=== PATIENT | female | born 1985 | race Caucasian/White ===

== ENCOUNTER 2017-01-26 22:25 | Inpatient (IN) | payer BC, OTHER ==
[2017-01-26] MEDS ORDERED: Adenosine* 3 MG/ML VIAL ONE (22:34)
[2017-01-26] MEDS ORDERED: LORazepam INJ* 2 MG/ML 1 ML VIAL ONE (22:45)
[2017-01-26] MEDS ORDERED: NS 0.9% 1000 ML* 1,000 ML IV ONE (22:53)
[2017-01-26] MEDS ORDERED: Adenosine SYRINGE* 6 MG/2 ML IV PUSH ONE (22:53)
[2017-01-26] MEDS ORDERED: Adenosine* 3 MG/ML VIAL IV PUSH ONE ×2 (22:55→22:59)
[2017-01-26] MEDS ORDERED: LORazepam INJ* 2 MG/ML 1 ML VIAL IV PUSH ONE (22:59)
[2017-01-26 23:08] LABS: Hematocrit 41 % (35-47); Hemoglobin 13.7 g/dl (12.0-16.0); Mean Corpuscular HGB Conc 33 g/dl (31-36); Mean Corpuscular Hemoglobin 29 pg (27-31); Mean Corpuscular Volume 87 fL (80-97); Mean Platelet Volume 9 um3 (7.4-10.4); Red Blood Count 4.73 10^6/ul (4.0-5.4); Red Cell Distribution Width 14 % (10.5-15); White Blood Count 16.9 10^3/ul (3.5-10.8)
[2017-01-26 23:14] LABS: Comments Flag Yes
[2017-01-26 23:15] LABS: Add Diff/Slide Review? Slide Review Added
[2017-01-26 23:20] LABS: ALT 18 U/L (7-52); AST 17 U/L (13-39); Albumin 4.3 g/dL (3.2-5.2); Alkaline Phosphatase 45 U/L (34-104); Anion Gap 11 mmol/L (2-11); BUN/Creatinine Ratio 21.7 (8-20); Blood Urea Nitrogen 18 mg/dL (6-24); CO2 Carbon Dioxide 21 mmol/L (22-32); Calcium 9.8 mg/dL (8.6-10.3); Chloride 100 mmol/L (101-111); EGFR African American 103.1 (>60); EGFR Non-African American 80.2 (>60); Globulin 3.1 g/dL (2-4); Glucose 135 mg/dL (70-100); Magnesium 1.7 mg/dL (1.9-2.7); Sodium 132 mmol/L (133-145); Total Protein 7.4 g/dL (6.4-8.9)
[2017-01-26 23:37] LABS: Troponin I 0.04 ng/mL (<0.04)
[2017-01-26] MEDS ORDERED: Potassium Chlor TAB* 20 MEQ TAB.ER PO ONE (23:38)
[2017-01-27 00:03] LABS: TSH (Thyroid Stimulating Horm) 9.18 mcIU/mL (0.34-5.60)
[2017-01-27 01:48] LABS: Benzodiazepine Urine Screen Presumptive Positive (None Detect)
[2017-01-27] MEDS ORDERED: Aspirin Low Dose CHEW TAB* 81 MG PO ONE (02:36)
[2017-01-27] MEDS ORDERED: Nitroglycerin 2% OINT* 1 GM PAK ONE (05:41)
[2017-01-27] MEDS ORDERED: Heparin DRIP 25,000 UNITS(*) 25,000 UNITS/500 ML BAG IVPB SCH (05:45)
[2017-01-27] MEDS: Nitroglycerin 2% OINT* 1 GM PAK TOPICAL SCH ×3 (05:49→18:32)
[2017-01-27] MEDS: Heparin VIAL(*) 5000 UNITS/ML VIAL (FIVE THOUSAND) IV SCH ×2 (06:00→15:11)
[2017-01-27] MEDS ORDERED: LORazepam INJ* 2 MG/ML 1 ML VIAL IV PRN (07:39)
[2017-01-27] MEDS ORDERED: ALPRAZolam TAB* 0.25 MG PO PRN (07:39)
--- NOTE | 2017-01-27 07:44 | HP ---
H&P (Free Text) History and Physical: PCP: Addi Schafer MD Date/Time of Evaluation: 01/27/2017 0600 CC: palpitations HPI: Mrs Devine is a 31YO obese female HX anxiety who reports onset of palpitations while watching a movie around 2200. She reports having similar episodes in the past, but they stopped very quickly whereas this one continued. She felt some mild non-radiating chest pressure, mild nausea, & mild SOB. Upon presentation to ED, she was found to be in SVT max rate 246 converted back to sinus after adenosine 6 & 12mg doses. ECG post-conversion is NSR rate 105 w/ subtle ST depression in I & II. Initial troponin was 0.04. She initially denied drug use. However, when confronted with her UDS positive for cocaine admitted to use "a couple days ago". Follow up troponin was 0.38. PMedHx Anxiety Allergies CI Pigment Blue 63 [From Cymbalta] Allergy (Verified 01/26/17 22:51) tension, anxiety, muscle spasms Duloxetine [From Cymbalta] Allergy (Verified 01/26/17 22:51) tension, anxiety, muscle spasms Ambulatory Orders Alprazolam [Xanax] 0.25 mg PO BID PRN 01/26/17 PSurgHx denies SocHx: states this is only the 2nd time she's used cocaine, admits to ~12beers/ week, denies tobacco; works at [employer]; , no children; full code status FamHx: Mother: breast CA. Father: NIDDM & HTN. ROS: as above, otherwise reviewed and all were negative Constitutional: NAD, normally developed, obese white female vitals: Vital Signs Temp 36.9 C 01/27/17 05:15 Pulse 95 01/27/17 06:15 Resp 19 01/27/17 06:15 BP 132/83 01/27/17 06:15 Pulse Ox 97 01/27/17 06:15 Intake & Output 01/26/17 01/26/17 01/27/17 11:59 23:59 11:59 Intake Total 1000 0 Balance 1000 0 Weight 83.915 kg 86.636 kg Intake: IV Fluids 1000 Oral 0 Other: # Voids 1 HEENM: atraumatic; sclera/conjunctiva: non-icteric/clear; hearing: intact; oropharynx: clear, mucosa moist Neck: soft tissue: non-tender; thyroid: normal Pulmonary: clear to auscultation bilaterally, good aeration, no accessory muscle use CV: RR/RR, normal S1S2, no carotid bruit, no jugular venous distention, 2+ B DP/ PT, no edema Abdominal: soft, non-distended, non-tender, no rebound/guarding/rigidity, normoactive bowel sounds, no hepatosplenomegaly or masses, no costovertebral angle tenderness Musculoskeletal: general: grossly intact; gait: stable Integumental: normal appearance and texture of exposed skin Psychiatric orientation: AA&O to PPS affect: calm mood: cooperative eye contact: good content: mostly reliable responses: timely insight: good Testing: Lab Results 01/26/17 01/26/17 01/26/17 Range/Units 22:45 22:45 22:45 WBC 16.9 H (3.5-10.8) 10^3/ul RBC 4.73 (4.0-5.4) 10^6/ul Hgb 13.7 (12.0-16.0) g/dl Hct 41 (35-47) % MCV 87 (80-97) fL MCH 29 (27-31) pg MCHC 33 (31-36) g/dl RDW 14 (10.5-15) % Plt Count 321 (150-450) 10^3/ul MPV 9 (7.4-10.4) um3 Neut % (Auto) 54.2 (38-83) % Lymph % (Auto) 37.7 (25-47) % Jenkins % (Auto) 5.8 (1-9) % Eos % (Auto) 1.2 (0-6) % Baso % (Auto) 1.1 (0-2) % Absolute Neuts (auto) 9.2 H (1.5-7.7) 10^3/ul Absolute Lymphs (auto) 6.4 H (1.0-4.8) 10^3/ul Absolute Monos (auto) 1.0 H (0-0.8) 10^3/ul Absolute Eos (auto) 0.2 (0-0.6) 10^3/ul Absolute Basos (auto) 0.2 (0-0.2) 10^3/ul Absolute Nucleated RBC 0.01 10^3/ul Nucleated RBC % 0 INR (Anticoag Therapy) 0.85 L (0.89-1.11) APTT 26.6 (26.0-36.3) seconds D-Dimer, Quantitative < 200 (Less Than 230) ng/mL Sodium 132 L (133-145) mmol/L Potassium 3.0 L (3.5-5.0) mmol/L Chloride 100 L (101-111) mmol/L Carbon Dioxide 21 L (22-32) mmol/L Anion Gap 11 (2-11) mmol/L BUN 18 (6-24) mg/dL Creatinine 0.83 (0.51-0.95) mg/dL Est GFR ( Amer) 103.1 (>60) Est GFR (Non-Af Amer) 80.2 (>60) BUN/Creatinine Ratio 21.7 H (8-20) Glucose 135 H (70-100) mg/dL Calcium 9.8 (8.6-10.3) mg/dL Magnesium 1.7 L (1.9-2.7) mg/dL Total Bilirubin 0.30 (0.2-1.0) mg/dL AST 17 (13-39) U/L ALT 18 (7-52) U/L Alkaline Phosphatase 45 (34-104) U/L Troponin I 0.04 H* (<0.04) ng/mL B-Natriuretic Peptide ( - 100) pg/mL Total Protein 7.4 (6.4-8.9) g/dL Albumin 4.3 (3.2-5.2) g/dL Globulin 3.1 (2-4) g/dL Albumin/Globulin Ratio 1.4 (1-3) TSH 9.18 H (0.34-5.60) mcIU/mL Beta HCG, Quant < 0.60 mIU/mL Urine Opiates Screen (None Detect) Ur Barbiturates Screen (None Detect) Ur Phencyclidine Scrn (None Detect) Ur Amphetamines Screen (None Detect) U Benzodiazepines Scrn (None Detect) Urine Cocaine Screen (None Detect) U Cannabinoids Screen (None Detect) 01/26/17 01/27/17 01/27/17 Range/Units 22:45 01:10 02:00 WBC (3.5-10.8) 10^3/ul RBC (4.0-5.4) 10^6/ul Hgb (12.0-16.0) g/dl Hct (35-47) % MCV (80-97) fL MCH (27-31) pg MCHC (31-36) g/dl RDW (10.5-15) % Plt Count (150-450) 10^3/ul MPV (7.4-10.4) um3 Neut % (Auto) (38-83) % Lymph % (Auto) (25-47) % Jenkins % (Auto) (1-9) % Eos % (Auto) (0-6) % Baso % (Auto) (0-2) % Absolute Neuts (auto) (1.5-7.7) 10^3/ul Absolute Lymphs (auto) (1.0-4.8) 10^3/ul Absolute Monos (auto) (0-0.8) 10^3/ul Absolute Eos (auto) (0-0.6) 10^3/ul Absolute Basos (auto) (0-0.2) 10^3/ul Absolute Nucleated RBC 10^3/ul Nucleated RBC % INR (Anticoag Therapy) (0.89-1.11) APTT (26.0-36.3) seconds D-Dimer, Quantitative (Less Than 230) ng/mL Sodium (133-145) mmol/L Potassium (3.5-5.0) mmol/L Chloride (101-111) mmol/L Carbon Dioxide (22-32) mmol/L Anion Gap (2-11) mmol/L BUN (6-24) mg/dL Creatinine (0.51-0.95) mg/dL Est GFR ( Amer) (>60) Est GFR (Non-Af Amer) (>60) BUN/Creatinine Ratio (8-20) Glucose (70-100) mg/dL Calcium (8.6-10.3) mg/dL Magnesium (1.9-2.7) mg/dL Total Bilirubin (0.2-1.0) mg/dL AST (13-39) U/L ALT (7-52) U/L Alkaline Phosphatase (34-104) U/L Troponin I 0.38 H* (<0.04) ng/mL B-Natriuretic Peptide 56 ( - 100) pg/mL Total Protein (6.4-8.9) g/dL Albumin (3.2-5.2) g/dL Globulin (2-4) g/dL Albumin/Globulin Ratio (1-3) TSH (0.34-5.60) mcIU/mL Beta HCG, Quant mIU/mL Urine Opiates Screen None detected (None Detect) Ur Barbiturates Screen None detected (None Detect) Ur Phencyclidine Scrn None detected (None Detect) Ur Amphetamines Screen None detected (None Detect) U Benzodiazepines Scrn Presumptive positive H (None Detect) Urine Cocaine Screen Presumptive positive H (None Detect) U Cannabinoids Screen None detected (None Detect) ECG, personally reviewed (post-conversion): NSR rate 105 w/ subtle ST depression in I & II CXR, personally reviewed: no acute process Impression: 31F presenting with a cocaine induced NSTEMI DIAGNOSIS & PLAN Primary cocaine induced NSTEMI : aspirin : nitropaste : heparin GTT : IV lorazepam PRN for tachycardia (non-SVT) or HTN : no beta dave 2nd cocaine : supplemental oxygen : check ECHO : trend troponins : Hardeep Christianson MD cardiology consulted, will follow Secondary anxiety : continue PRN alprazolam Admission Rational: inpatient for NSTEMI DVTp: heparin GTT Code Status: full HCP:
--- NOTE | 2017-01-27 07:52 | RAD ---
INDICATION: Palpitations. COMPARISON: Comparison is made with a prior study from June 20, 2011. TECHNIQUE: A portable view of the chest was obtained. FINDINGS: Cardiac and mediastinal contours appear to be within normal limits. The lungs are clear. No pleural effusion is seen. IMPRESSION: NO EVIDENCE FOR ACUTE DISEASE.
[2017-01-27 08:42] LABS: Hematocrit 38 % (35-47); Hemoglobin 12.3 g/dl (12.0-16.0); Mean Corpuscular HGB Conc 33 g/dl (31-36); Mean Corpuscular Hemoglobin 29 pg (27-31); Mean Corpuscular Volume 87 fL (80-97); Mean Platelet Volume 9 um3 (7.4-10.4); Red Blood Count 4.32 10^6/ul (4.0-5.4); Red Cell Distribution Width 14 % (10.5-15); White Blood Count 10.8 10^3/ul (3.5-10.8)
[2017-01-27 08:56] LABS: BUN/Creatinine Ratio 14.9 (8-20); EGFR Non-African American 102.7 (>60); Potassium 3.9 mmol/L (3.5-5.0)
--- NOTE | 2017-01-27 08:56 | PN ---
Subjective Date of Service: 01/27/17 Interval History: Seen with at bedside No palpitation, no chest pain, no pain, no SOB, N/V Has no complaints Objective Active Medications: Alprazolam (Xanax Tab*) 0.25 mg PO BID PRN PRN Reason: ANXIETY Heparin Sodium (Porcine) (Heparin Vial(*)) 0 units IV .PER PROTOCOL [facility] Last Admin: 01/27/17 06:00 Dose: 4,650 units Heparin Sodium/Dextrose (Heparin Drip 25,000 Units(*)) 25,000 units in 500 mls @ 0 mls/hr IVPB .(INITIAL RATE) MARCELA; Per Protocol PRN Reason: Protocol Last Admin: 01/27/17 06:04 Dose: 20 mls/hr Lorazepam (Ativan Inj*) 1 mg IV Q10M PRN PRN Reason: systolc>150 or HR>100(not SVT) Nitroglycerin (Nitroglycerin 2% Oint*) 1 inch TOPICAL Q6H [facility] Last Admin: 01/27/17 05:49 Dose: 1 inch Pharmacy Profile Note (Nitro Patch/Oint Remove*) 1 note PATCH OFF Q6H [facility] Vital Signs 01/27/17 01/27/17 01/27/17 04:00 04:30 04:51 Temperature 98.5 F Pulse Rate 109 103 97 Respiratory 12 18 16 Rate Blood Pressure 96/80 124/91 124/91 (mmHg) O2 Sat by Pulse 98 98 Oximetry 01/27/17 01/27/17 01/27/17 05:00 05:15 05:23 Temperature 98.4 F Pulse Rate 102 93 Respiratory 16 16 15 Rate Blood Pressure 147/82 138/80 134/81 (mmHg) O2 Sat by Pulse 98 97 Oximetry 01/27/17 01/27/17 01/27/17 05:30 05:36 05:45 Temperature Pulse Rate 96 90 Respiratory 17 15 18 Rate Blood Pressure 132/84 135/80 (mmHg) O2 Sat by Pulse 97 97 Oximetry 01/27/17 01/27/17 01/27/17 06:00 06:15 06:30 Temperature Pulse Rate 86 95 90 Respiratory 16 19 15 Rate Blood Pressure 127/84 132/83 119/80 (mmHg) O2 Sat by Pulse 97 97 97 Oximetry 01/27/17 01/27/17 01/27/17 06:45 07:00 07:15 Temperature Pulse Rate 92 94 81 Respiratory 15 18 27 Rate Blood Pressure 127/82 127/80 131/68 (mmHg) O2 Sat by Pulse 97 97 95 Oximetry 01/27/17 01/27/17 01/27/17 07:30 07:36 07:45 Temperature 97.8 F Pulse Rate 88 91 Respiratory 22 17 Rate Blood Pressure 117/69 129/75 (mmHg) O2 Sat by Pulse 95 96 Oximetry 01/27/17 01/27/17 01/27/17 07:49 08:00 08:15 Temperature Pulse Rate 99 Respiratory 17 16 Rate Blood Pressure 125/73 115/75 (mmHg) O2 Sat by Pulse 97 Oximetry Oxygen Devices in Use Now: None Appearance: lying flat in bed, interactive, NAD Eyes: No Scleral Icterus, PERRLA Ears/Nose/Mouth/Throat: NL Teeth, Lips, Gums, Clear Oropharnyx, Mucous Membranes Moist Neck: NL Appearance and Movements; NL JVP, Trachea Midline, No Thyroid Enlargement, Masses Respiratory: Symmetrical Chest Expansion and Respiratory Effort, Clear to Auscultation Cardiovascular: RRR, - - tachy at 100 bpm Abdominal: NL Sounds; No Tenderness; No Distention, No Hepatosplenomegaly Lymphatic: No Cervical Adenopathy Extremities: No Edema Skin: No Rash or Ulcers Neurological: Alert and Oriented x 3 Result Diagrams: 01/27/17 08:13 01/26/17 22:45 Microbiology and Other Data: Microbiology 01/27/17 05:30 Nasal Screen MRSA (PCR)(ANANDA) - Final Nasal Mrsa Negative Assess/Plan/Problems-Billing Assessment: 31 yo F p/w SVT now NSR after adenosine 6mg then 12mg. Pt indicates at least 1 year history of palpitations and several month history of increasing dyspnea on exertion. - Patient Problems (1) Elevated troponin Comment: suspect in setting of SVT although cocaine induced myocardioal ischemia or vasospasm also possible trend check TTE ASA heparin drip, nitro paste cards c/s (2) SVT (supraventricular tachycardia) Comment: responded to adenosine If evidence of tachy induced cardiomyopathy plan on starting beta dave ( although cocaine use) or Ca channel dave. counseled cocaine abstinence, decrease alcohol consumption (6 drinks every other day) (3) Leukocytosis Comment: trend (4) Cocaine use Comment: counseled cessation (5) Anxiety Comment: diazempam q8 PRN (6) DVT prophylaxis Comment: hep gtt
[2017-01-27 09:09] LABS: Free T4 0.81 ng/dL (0.61-1.12)
[2017-01-27 09:09] LABS: Troponin I 0.12 ng/mL (<0.04)
[2017-01-27] MEDS ORDERED: Acetaminophen TAB* 325 MG ONE (12:33)
--- NOTE | 2017-01-27 14:48 | ECHO ---
Patient: MCKENZIE MAHMOOD [facility] Rec#: [id number] : 1985 Date: 01/27/2017 Age: 31y Height: 157.48 cm / 62.0 in Weight: 86.64 kg / 191.0 lbs Sex: F BSA: 1.87 Room#: [facility] Admit Date#: 01/27/2017 Type: Inpatient Referring: Edilson Mckenzie MD Reading: Edilson Mckenzie MD Production Potter: Jeison Zaragoza RDCS Transthoracic Echocardiogram Indication: SVT BP: 115/75 HR: 94 Rhythm: NSR Findings History: cocaine related nstemi Technical Comments: The study quality is good. Completed 1400 Left Ventricle: The left ventricular chamber size is normal. Global left ventricular wall motion and contractility are within normal limits. There is normal left ventricular systolic function. The estimated ejection fraction is 60-65%. The left ventricular diastolic filling pattern is consistent with pseudonormalization. Left Atrium: The left atrial chamber size is normal. Right Ventricle: The right ventricular cavity size is normal. The right ventricular global systolic function is normal. Right Atrium: The right atrial cavity size is normal. Aortic Valve: The aortic valve is trileaflet. There is no evidence of aortic regurgitation. There is no evidence of aortic stenosis. Mitral Valve: The mitral valve leaflets appear normal. There is no evidence of mitral regurgitation. There is no evidence of mitral stenosis. Tricuspid Valve: The tricuspid valve appears normal in structure and function. There is no evidence of tricuspid valve regurgitation. Pulmonic Valve: The pulmonic valve appears normal. There is no evidence of pulmonic regurgitation. There is no pulmonic stenosis. Pericardium: There is no pericardial effusion. Aorta: There is no dilatation of the ascending aorta. The aortic arch is not well visualized. There is no dilation of the aortic root. Pulmonary Artery: The main pulmonary artery appears normal. Venous: The inferior vena cava appears normal in size. There is a greater than 50% respiratory change in the inferior vena cava dimension. Conclusions Global left ventricular wall motion and contractility are within normal limits. The estimated ejection fraction is 60-65%. The right ventricular global systolic function is normal. There is no evidence of aortic regurgitation. There is no evidence of mitral regurgitation. There is no evidence of mitral stenosis. The tricuspid valve appears normal in structure and function. There is no pericardial effusion. Measurements Name Value Normal Range RVIDd (AP) 2D 1.8 cm (0.9 - 2.6) RVDdMajor (2D) 2.5 cm (2.2 - 4.4) RAd ISD 4CH 5.1 cm (3.4 - 4.9) RA (A4C)W 2.7 cm (2.9 - 4.6) IVSd (2D) 1.1 cm (0.6 - 1) LVPWd (2D) 0.6 cm (0.6 - 1) LVIDd (2D) 4 cm (3.6 - 5.4) LVIDs (2D) 2.5 cm - LV FS (2D) 37 % (25 - 45) Aortic Annulus 2 cm (1.4 - 2.6) Ao root diameter (2D) 2.4 cm (2.1 - 3.5) Ascending Ao 2.3 cm (2.1 - 3.4) Aortic arch 2.3 cm (1.8 - 3.4) LA dimension (AP) 2D 2.9 cm (2.3 - 3.8) LAd ISD 4CH 5.3 cm (2.9 - 5.3) LA ISD 4CH W 2.5 cm (2.5 - 4.5) Name Value Normal Range LA ESV SP 4CH (A/L) 28 ml - LA ESV SP 2CH (A/L) 41 ml - LA ESV BP (A/L) 39 ml - LA ESV BP (A/L) index 20.93 ml/m2 - LA ESV SP 4CH (MOD) 25 ml - LA ESV SP 2CH (MOD) 39 ml - Name Value Normal Range MV E-wave Vmax 0.75 m/sec - MV deceleration time 60 msec - MV A-wave Vmax 0.73 m/sec - MV E:A ratio 1.04 ratio - LV septal e' Vmax 0.09 m/sec - LV lateral e' Vmax 0.09 m/sec - LV E:e' septal ratio 8.3 ratio - LV E:e' lateral ratio 8.3 ratio - Name Value Normal Range LVOT diameter 1.9 cm - LVOT Vmax 1.09 m/sec - RILEY (continuity Vmax) 2 cm2 - Name Value Normal Range IVC diameter 1.66 cm - Name Value Normal Range PV Vmax 0.9 m/sec -
[2017-01-27] MEDS: Nitro Patch/OINT Remove PATCH OFF SCH ×2 (17:22→18:32)
[2017-01-27] MEDS: Diazepam TAB(*) 5 MG PO PRN (21:41)
[2017-01-27] MEDS: Acetaminophen TAB* 325 MG PO PRN (21:41)
[2017-01-27] MEDS: Heparin VIAL(*) 5000 UNITS/ML VIAL (FIVE THOUSAND) SUBCUT SCH (21:44)
[2017-01-28 05:47] LABS: Hematocrit 43 % (35-47); Hemoglobin 13.7 g/dl (12.0-16.0); Mean Corpuscular HGB Conc 32 g/dl (31-36); Mean Corpuscular Hemoglobin 29 pg (27-31); Mean Corpuscular Volume 90 fL (80-97); Mean Platelet Volume 9 um3 (7.4-10.4); Red Blood Count 4.79 10^6/ul (4.0-5.4); Red Cell Distribution Width 14 % (10.5-15); White Blood Count 9.6 10^3/ul (3.5-10.8)
[2017-01-28 06:04] LABS: BUN/Creatinine Ratio 13.2 (8-20); Calcium 9.3 mg/dL (8.6-10.3); EGFR African American 114.2 (>60); EGFR Non-African American 88.8 (>60); Potassium 3.9 mmol/L (3.5-5.0)
[2017-01-28] MEDS: Heparin VIAL(*) 5000 UNITS/ML VIAL (FIVE THOUSAND) SUBCUT SCH (06:23)
[2017-01-28] MEDS: Acetaminophen TAB* 325 MG PO PRN (06:26)
[2017-01-28] MEDS: Diazepam TAB(*) 5 MG PO PRN (06:26)
[2017-01-28 11:12] VITALS: BP 110/78
--- NOTE | 2017-01-28 13:53 | CONS ---
CONSULTATION REPORT: DATE OF CONSULT: 01/27/17 INDICATION FOR CONSULT: Palpitation, supraventricular tachycardia. HISTORY OF PRESENT ILLNESS: The patient is a 31-year-old female with a past medical history of anxiety who came to the emergency room because of palpitations. On arrival to the emergency room, she was found to be in narrow complex tachycardia at 240 beats per minute. She was given 6 mg of adenosine and then 12 mg again and converted to normal sinus rhythm. In speaking with the patient she says that she did use cocaine within the last 48 hours. The patient states that over the last couple of months she has had a couple of episodes of palpitations. She denied any true anginal type symptoms. She denied any shortness of breath. She denied any lightheadedness, dizziness or syncope. While in the hospital, her initial troponin level was normal. Her second troponin was 0.38. The patient did have an echocardiogram yesterday, which demonstrated normal LV size and systolic function. No valvular abnormalities. There was no pericardial effusion. There are no focal wall motion abnormalities. PAST MEDICAL HISTORY: Significant for anxiety. PAST SURGICAL HISTORY: None. OUTPATIENT MEDICATIONS: Xanax as needed. ALLERGIES: CYMBALTA, which causes anxiety in this patient. FAMILY HISTORY: Her mother has a history of breast cancer. Father has a history of diabetes. SOCIAL HISTORY: She denies tobacco use. She works at [employer]. She is . She has no children. She drinks approximately 12 beers a week. She has used cocaine 3 times in her life. REVIEW OF SYSTEMS: Negative for fevers, chills. Negative for changes in bowel or bladder. Negative for change in weight. All the 12-point review was unremarkable. PHYSICAL EXAM: Height 4 feet 11 inches, weight is 185 pounds, temperature 97.7 , heart rate is 91, oxygen saturation 100%, blood pressure of 129/70. Sclerae anicteric. Oropharynx is pink. No erythema. Carotids are 2+ without bruits. JVD is normal. Thyroid is normal. Cardiac exam: S1, S2 without any murmurs, rubs, or gallops. Lungs: Clear to auscultation bilaterally. No dullness to percussion. Abdomen is soft, nontender, nondistended with normoactive bowel sounds. Extremities show no edema. She has 2+ pulses throughout. The patient is awake, alert, and oriented. She moves all 4 extremities equally. DIAGNOSTIC STUDIES/LAB DATA: Initial EKG demonstrate a narrow complex tachycardia at 240 beats per minute. Her second EKG demonstrates normal sinus rhythm with normal axis and intervals. CBC within normal limits. Chemistry is within normal limits. Peak troponin 0.38. IMPRESSION: This is a 31-year-old female with a presentation of palpitations, she was found to have a narrow to complex tachycardia. Her post conversion EKG demonstrates normal sinus rhythm with normal axis intervals, no evidence of delta waves and no evidence of WPW. Her echocardiogram shows normal LV size with systolic function. At this point, I do not think any further workup is necessary. The patient should be discharged home on low dose beta dave. I will see the patient in followup as an outpatient to see if any other testing is necessary at that time. We will see how often she gets her palpitations and that will dictate medical therapy. CC: Dr. Menendez* [id number]/CPS #: [id number] MTDD
--- NOTE | 2017-01-29 00:01 | DS ---
DISCHARGE SUMMARY: DATE OF ADMISSION: 01/27/17 DATE OF DISCHARGE: 01/28/17 PRIMARY CARE PROVIDER: Dr. Menendez. DISCHARGE DIAGNOSES: 1. Supraventricular tachycardia, resolved after pharmacologic cardioversion with adenosine in the emergency department. 2. Cocaine use. 3. Mildly elevated TSH with remaining thyroid function hormones within normal limits. SECONDARY DIAGNOSIS: Anxiety. MEDICATIONS AT DISCHARGE: Include: 1. Xanax 0.25 mg b.i.d. p.r.n. 2. Metoprolol tartrate 12.5 mg b.i.d. LABORATORY DATA AND STUDIES PERFORMED DURING THE HOSPITAL STAY: Included: Troponin peaked at 0.38. The patient's TSH was 9.18. Free T4 0.81. Free T3 3.9. On 01/28/17, sodium of 134, potassium 3.9, chloride 102, carbon dioxide 23, BUN 10, creatinine 0.76. White blood cell of 9.6, hemoglobin of 13.7, hematocrit of 43, and platelets of 264. Toxicology studies were positive for cocaine and benzodiazepines. Transthoracic echocardiogram showed EF of 60% to 65% with normal ventricular wall motion and contractility. No pericardial effusion. The valves are within normal limits. CONSULTATIONS DURING THE HOSPITAL STAY: Included Dr. Mckenzie from Cardiology. HOSPITALIZATION COURSE: Jo-Ann Devine is a 31-year-old female with a history of anxiety who also has significant history of alcohol use. The patient stated that she used cocaine second time in her life and developed palpitations. She presented with SVT into the emergency room. That was converted after adenosine treatment. Her troponin peaked at 0.38. Dr. Mckenzie saw the patient in evaluation and noted that her troponin elevation was most likely due to SVT and cocaine use. Recommendation was to start the patient on a beta-dave. The patient was informed that while on beta-dave, she is not to use cocaine. She was also consulted in regards to alcohol and drug use. She stated that she is planning not to use cocaine or alcohol anymore. She is realizing the risks. She is recommended to follow up with Dr. Menendez in approximately 4 to 7 days after discharge. PHYSICAL EXAM AT TIME OF DISCHARGE: Blood pressure of 120/77, heart rate of 91 and regular, respiratory rate 16, oxygen saturation 99% on room air, temperature 98.6. General: The patient is a very pleasant 31-year-old female, who is in no acute distress. Alert, awake, and oriented x3. HEENT: Head: Atraumatic, normocephalic. Eyes: Pupils are equal and reactive to light and accommodation. Oropharynx clear. Mucosa moist. Neck: Supple. No JVD, no bruit bilaterally. Cardiovascular: Regular rate and rhythm. No murmur. Respiratory: Clear to auscultation bilaterally. Abdomen: Soft, nontender. Bowel sounds present in all 4 quadrants. Extremities: There is no edema. Pulses are 2+ bilaterally. No clubbing or cyanosis. Please note this is a short summary of the patient's hospital stay. Please refer to further medical records for details. CC: Dr. Menendez; Dr. Mckenzie* [id number]/CPS #: [id number] [facility]
== END 2017-01-28 11:47 | disposition home or self-care (01) | DRG 201 ==
LOC: ED 22:25 → ICU 01-27 03:49 → MEDTELE 01-27 15:28
PROVIDERS: ADMIT Hospitalist; ATTEND Internal Medicine
DX: I47.1 Supraventricular tachycardia (principal); E87.6 Hypokalemia; F41.9 Anxiety disorder, unspecified; F14.988 Cocaine use, unspecified with other cocaine-induced disorder; D72.829 Elevated white blood cell count, unspecified; E66.9 Obesity, unspecified; R94.6 Abnormal results of thyroid function studies; Z88.8 Allergy status to other drugs, medicaments and biological substances; Z82.49 Family history of ischemic heart disease and other diseases of the circulatory system; Z68.37 Body mass index [BMI] 37.0-37.9, adult
CPT/HCPCS: 36415; 71010; 80048; 80053; 80307; 83735; 83880; 84439; 84443; 84481; 84484; 84702; 85025; 85379; 85610; 85730; 87641; 93005; 93306; A9270-GY; J0153; J1644; J2060